=== PATIENT | female | born 1945 | race Caucasian/White ===

== ENCOUNTER 2017-05-08 06:44 | Emergency (ER) | payer BC, MEDICARE, OTHER ==
--- NOTE | 2017-05-08 09:07 | RADIOLOGY REPORT (SQ) ---
EXAM DESCRIPTION: ANKLE BILATERAL 3 VIEWS MIN COMPLETED DATE/TIME: 05/08/2017 8:59 am REASON FOR STUDY: fall, pain COMPARISON: None. NUMBER OF VIEWS: Three views. TECHNIQUE: AP, lateral, and oblique radiographic images acquired of the right and left ankle. LIMITATIONS: None. FINDINGS: MINERALIZATION: There is osteopenia bilaterally. BONES: There are postsurgical changes on the right with internal fixation of a distal fibular fractur e and medial mL fracture. No acute fracture or dislocation. On the left there is a fractured the ba se of the 5th metatarsal. JOINTS: No effusions. SOFT TISSUES: There is soft tissue swelling laterally on the left. OTHER: No other significant finding. IMPRESSION: 1. Fracture is at the base of the 5th metatarsal on the left. The ankle is intact. 2. Postsurgical changes on the right with no acute fracture or dislocation. TECHNICAL DOCUMENTATION: JOB ID: [id number] [employer]- All Rights Reserved
--- NOTE | 2017-05-08 09:08 | RADIOLOGY REPORT (SQ) ---
EXAM DESCRIPTION: TIB FIB BILAT 2 VIEWS COMPLETED DATE/TIME: 05/08/2017 8:59 am REASON FOR STUDY: fall, pain COMPARISON: None. NUMBER OF VIEWS: Two views. TECHNIQUE: Two radiographic images acquired of the right and left tibia and fibula to include the kn ee and ankle in at least one projection. LIMITATIONS: None. FINDINGS: MINERALIZATION: Normal. BONES: No acute fracture or dislocation. No worrisome bone lesions. There are postsurgical changes in the distal right tibia and fibula. SOFT TISSUES: There is soft tissue edema bilaterally. OTHER: No other significant finding. IMPRESSION: Soft tissue swelling bilaterally. Postsurgical changes on the right. No acute fracture or dislocation. TECHNICAL DOCUMENTATION: JOB ID: [id number] [employer] All Rights Reserved
--- NOTE | 2017-05-08 09:09 | RADIOLOGY REPORT (SQ) ---
EXAM DESCRIPTION: FOOT BILATERAL 3 VIEWS COMPLETED DATE/TIME: 05/08/2017 8:59 am REASON FOR STUDY: fall, pain COMPARISON: None. NUMBER OF VIEWS: Three views. TECHNIQUE: AP, lateral and oblique radiographic images acquired of the right and left foot. LIMITATIONS: None. FINDINGS: MINERALIZATION: There is bilateral osteopenia. BONES: There is an acute fracture at the base of the 5th left metatarsal. There are postsurgical kalee nges on the right in the distal tibia and fibula. JOINTS: No effusions. SOFT TISSUES: There is bilateral soft tissue swelling. OTHER: No other significant finding. IMPRESSION: Acute fracture at the base of the 5th left metatarsal. TECHNICAL DOCUMENTATION: JOB ID: [id number] [employer]- All Rights Reserved
--- NOTE | 2017-05-08 09:33 | ER Document Report ---
ED Fall - General Information source: Patient TRAVEL OUTSIDE OF THE [place] IN LAST 30 DAYS: No - HPI Occurred: Yesterday Where: Home Context: Tripped Location of injury/pain: Ankle, Foot <MAYI STEINER - Last Filed: 05/08/17 11:54> <AYESHA LUI - Last Filed: 05/08/17 16:41> - General Chief Complaint: Fall Injury Stated Complaint: FALL Time Seen by Provider: 05/08/17 07:03 Notes: Patient is a 71 year old female who presents to the ED with complaints of bilateral feet and ankle pain (left greater than right) after falling down the stairs last night. Patient states she landed on her buttocks with her back to the trailer. She states she was in a hurry and missed a step causing the fall. She denies hitting her head or LOC. She denies neck pain. She states she does have some left hip pain but it is chronic and no worse than the baseline. She is able to ambulate but with assistance due to the pain. (MAYI STEINER) - Related data Allergies/Adverse Reactions: nitroprusside sodium [From Nipride] Allergy (Mild, Verified 05/08/17 10:10) Penicillins Allergy (Mild, Verified 05/08/17 10:10) Home Medications: Current Home Medications Gabapentin [Gabapentin] 300 mg PO DAILY 05/08/17 [History] Hydrochlorothiazide [Hydrochlorothiazide] 25 tab PO DAILY 05/08/17 [History] Lisinopril [Lisinopril] 20 mg PO DAILY 05/08/17 [History] Metoprolol Succinate [Metoprolol Succinate] 100 tab PO DAILY 05/08/17 [History] Simvastatin [Simvastatin] 40 tab PO DAILY 05/08/17 [History] Past Medical History - General Information source: Patient - Social History Smoking Status: Never Smoker Chew tobacco use (# tins/day): No Frequency of alcohol use: Rare Drug Abuse: None Patient has suicidal ideation: No Patient has homicidal ideation: No - Past Medical History Cardiac Medical History: Reports: Hx Hypertension Renal/ Medical History: Denies: Hx Peritoneal Dialysis <MAYI STEINER - Last Filed: 05/08/17 11:54> - Social History Family History: Reviewed & Not Pertinent <AYESHA LUI - Last Filed: 05/08/17 16:41> Review of Systems - Review of Systems Constitutional: No symptoms reported EENT: No symptoms reported Cardiovascular: No symptoms reported Respiratory: No symptoms reported Gastrointestinal: No symptoms reported Genitourinary: No symptoms reported Female Genitourinary: No symptoms reported Musculoskeletal: See HPI, Other - bilateral foot and ankle pain. denies: Neck pain Skin: No symptoms reported Hematologic/Lymphatic: No symptoms reported Neurological/Psychological: See HPI. denies: Lost consciousness, Headaches <JATINMAYI - Last Filed: 05/08/17 11:54> Physical Exam - General General appearance: Appears well, Alert In distress: None - HEENT Head: Normocephalic, Atraumatic Eyes: Normal Extraocular movements intact: Yes Pupils: PERRL - Respiratory Respiratory status: No respiratory distress Breath sounds: Normal - Cardiovascular Rhythm: Regular Heart sounds: Normal auscultation Murmur: No - Abdominal Inspection: Normal - Back Back: Normal - Extremities General upper extremity: Normal inspection, Normal ROM General lower extremity: Other - ecchymosis to left lateral foot, tender over base of 5th metatarsal on left foot. decrease ROM on left ankle secondary to pain, good pulses. good pulses and full ROM on right ankle. Disturbed gate secondary to pain - Neurological Neuro grossly intact: Yes - Psychological Associated symptoms: Normal affect, Normal mood - Skin Skin Temperature: Warm Skin Moisture: Dry Skin Color: Normal Skin irregularity: other - ecchymosis to left lateral foot <JATINMAYI - Last Filed: 05/08/17 11:54> - Vital signs Vitals: Temp Pulse Resp BP Pulse Ox 98.1 F 81 18 155/75 H 96 05/08/17 06:44 05/08/17 06:44 05/08/17 06:44 05/08/17 06:44 05/08/17 06:44 Course <JATINMAYI - Last Filed: 05/08/17 11:54> - Diagnostic Test Radiology reviewed: Image reviewed, Reports reviewed <AYESHA LUI - Last Filed: 05/08/17 16:41> - Re-evaluation Re-evalutation: 05/08/17 Patient is a 71-year-old female who fell down 2 steps and landed on her rear end. She did not hit head or lose consciousness. Patient is complaining of bilateral ankle pain but mostly pain in her left foot. Patient has 1/5 metatarsal fracture. She will be placed in a short leg posterior splint and given crutches and a prescription for a cane. No other acute fractures noted. Patient is able to ambulate with crutches. She is stable for discharge home. [place] and is instructed to follow-up with an orthopedic doctor of her choice on Friday. Understands and agrees with plan. Stable for discharge. (AYESHA LUI) - Vital Signs Vital signs: Temp Pulse Resp BP Pulse Ox 98.1 F 82 20 168/68 H 96 05/08/17 10:47 05/08/17 10:47 05/08/17 10:47 05/08/17 10:47 05/08/17 10:47 Discharge <MAYI STEINER - Last Filed: 05/08/17 11:54> <AYESHA LUI - Last Filed: 05/08/17 16:41> - Discharge Clinical Impression: Fracture of 5th metatarsal Qualifiers: Encounter type: initial encounter Fracture type: closed Fracture alignment: displaced Laterality: left Qualified Code(s): S92.352A - Displaced fracture of fifth metatarsal bone, left foot, initial encounter for closed fracture Condition: Stable Disposition: HOME, SELF-CARE Instructions: Use of Crutches ([facility]), Foot Fracture ([facility]) Additional Instructions: Please call the orthopedic doctor today for an appointment on Friday or Friday. Prescriptions: Cane 1 unit XX DAILY PRN #1 PRN Reason: Walker [Ultra-Light Rollator] 1 each MC DAILY #1 each Scribe Attestation: 05/08/17 16:41 I personally performed the services described in the documentation, reviewed and edited the documentation which was dictated to the scribe in my presence, and it accurately records my words and actions. (AYESHA LUI) Scribe Documentation - Scribe Written by Ankitibe:: julissa Davison, 05/08/2017, [id number] acting as scribe for :: Leigh <MAYI STEINER - Last Filed: 05/08/17 11:54>
[2017-05-08] MEDS ORDERED: ACETAMINOPHEN 325 MG TABLET PO ONE (09:43)
[2017-05-08 10:49] VITALS: BP 168/68
== END 2017-05-08 10:49 | disposition home or self-care (01) ==
LOC: ER 06:44
DX: S92.352A Displaced fracture of fifth metatarsal bone, left foot, initial encounter for closed fracture (principal); W10.9XXA Fall (on) (from) unspecified stairs and steps, initial encounter; Y92.029 Unspecified place in mobile home as the place of occurrence of the external cause; M79.672 Pain in left foot; M25.572 Pain in left ankle and joints of left foot; M79.671 Pain in right foot; M25.571 Pain in right ankle and joints of right foot; M25.552 Pain in left hip; I10 Essential (primary) hypertension; Z88.0 Allergy status to penicillin; Z88.8 Allergy status to other drugs, medicaments and biological substances
CPT/HCPCS: 99283; 73590; 73630; 73610; 29515; A9270